=== PATIENT | male | born 1975 | race Two or more races ===

== ENCOUNTER 2017-08-02 05:54 | Inpatient (IN) | payer OTHER ==
[~2017-08-02] VITALS: Ht 165.1 cm; Wt 72.1 kg
[2017-08-02] VITALS (12 sets, daily range): BP systolic 109–136; BP diastolic 67–98
[~2017-08-02 05:54] MED LIST: IBUPROFEN600 MG ORAL
[2017-08-02] MEDS ORDERED: Vancomycin 1gm inj IVPB ONE (06:53)
[2017-08-02] MEDS ORDERED: Thrombin 5000 units TOPIC ONE (06:53)
[2017-08-02] MEDS ORDERED: Lidocaine 1% Plain 30 ml INJ ONE ×2 (06:54→07:01)
[2017-08-02] MEDS ORDERED: Bacitracin 50000 Units Vial ONE (06:54)
[2017-08-02] MEDS ORDERED: ceFAZolin sod 2 GM in D5W 110 ML IVPB SCH (07:00)
[2017-08-02] MEDS ORDERED: fentaNYL 100 mcg/2 mL IV ONE (07:01)
[2017-08-02] MEDS ORDERED: Midazolam 2mg/2ml Inj ONE (07:02)
[2017-08-02] MEDS ORDERED: Propofol 1,000mg/ 100ml btl IV ONE (07:30)
[2017-08-02] MEDS ORDERED: Sterile Water Irrig 1000ml IRRIG ONE (07:30)
[2017-08-02] MEDS ORDERED: LR 1000ml ONE (07:30)
[2017-08-02] MEDS ORDERED: Sodium Chloride 10ml vial INJ ONE ×3 (07:30→08:58)
[2017-08-02] MEDS ORDERED: Neostigmine 1mg/ml 10ml Inj ONE (07:30)
[2017-08-02] MEDS ORDERED: Zemuron 50mg/5ml Inj IV ONE (07:30)
[2017-08-02] MEDS ORDERED: NS Irrig 1000ml ONE (07:30)
[2017-08-02] MEDS ORDERED: Succinylcholine 20mg/ml 10ml vial ONE (07:30)
--- NOTE | 2017-08-02 07:40 | Pre-Procedure Note/Attestation ---
Pre-Procedure Note/Attestation Complete Prior to Procedure Planned Procedure: not applicable Procedure Narrative: Anterior Cervical Discectomy and Fusion of C7-T1 Indications for Procedure Pre-Operative Diagnosis: C7T1 herniation Attestation I attest that I discussed the nature of the procedure; its benefits; risks and complications; and alternatives (and the risks and benefits of such alternatives ), prior to the procedure, with the patient (or the patient's legal agricultural sales representative). I attest that, if there was a reasonable possibility of needing a blood transfusion, the patient (or the patient's legal agricultural sales representative) was given the [facility] standardized written summary, pursuant to the [place] Blood Safety Act ([place] Health and Safety Code # 1645, as amended). I attest that I re-evaluated the patient just prior to the surgery and that there has been no change in the patient's H&P, except as documented below: Miki Zamorano MD August 02, 2017 07:40
[2017-08-02] MEDS ORDERED: Clindamycin 600mg 50 ML IV ONE (07:42)
[2017-08-02] MEDS ORDERED: Naloxone 0.4mg/ml Inj IVP PRN (07:45)
[2017-08-02] MEDS ORDERED: Morphine Sulfate 4mg/ml Inj SUBQ PRN ×2 (07:45)
[2017-08-02] MEDS ORDERED: Milk of Magnesia 30ml Ud ORAL PRN (07:45)
[2017-08-02] MEDS ORDERED: HYDROcodone/Acetamin 7.5/325 tab ORAL PRN ×2 (07:45)
[2017-08-02] MEDS ORDERED: Norco 5mg/325mg tab ORAL PRN (07:45)
[2017-08-02] MEDS ORDERED: Chloraseptic Spray 20mL Bottle ORAL PRN (07:45)
[2017-08-02] MEDS ORDERED: Metoclopramide 10mg/2ml Inj IVP PRN (07:45)
--- NOTE | 2017-08-02 07:46 | Brief Operative Note ---
Immediate Post Operative Note Operative Note Chief Complaint: neck pain and radiculopathy Pre-op Diagnosis: C7T1 herniation Procedure: Anterior Cervical Discectomy and Fusion of C7-T1 Post-op Diagnosis: same as pre-op Findings: consistent w/pre-op dx studies Surgeon: Jaun Self Pay Collector: Nicole Anesthesiologist: POORNIMA Anesthesia: general Specimen: none Complications: none Condition: stable Fluids: IVF Estimated Blood Loss: minimal Drains: none Implant(s) used?: Yes - Cervical Peek interlock 6, osteocell Miki Zamorano MD August 02, 2017 07:46
[2017-08-02] MEDS ORDERED: Morphine Sulfate 10mg/ml Inj ONE (08:23)
[2017-08-02] MEDS ORDERED: Glycopyrrolate 0.2mg/ml 1ml Vial ONE (08:41)
[2017-08-02] MEDS ORDERED: Ketorolac 30mg Inj ONE (08:41)
[2017-08-02] MEDS ORDERED: Phenylephrine 10mg/ml Vial ONE (08:58)
[2017-08-02] MEDS ORDERED: LR 1000ml 1,000 ML IVLG SCH (08:59)
--- NOTE | 2017-08-02 08:59 | Anethesia Preoperative Eval ---
Anesthesia Pre-op PMH/ROS General Date of Evaluation: August 02, 2017 Time of Evaluation: 07:12 Anesthesiologist: Shanelle ASA Score: ASA 2 Mallampati Score Class I : Soft palate, uvula, fauces, pillars visible Class II: Soft palate, uvula, fauces visible Class III: Soft palate, base of uvula visible Class IV: Only hard plate visible Mallampati Classification: Class II Surgeon: Jaun Diagnosis: Cervical radiculopathy Surgical Procedure: ACDF C7-T1 Anesthesia History: none Family History: no anesthesia problems Allergies: Coded Allergies: No Known Allergies (Unverified , 07/31/17) Medications: see eMAR Past Medical History Cardiovascular: Denies: HTN, CAD, CO, valve dz, arrhythmia, other Pulmonary: Denies: asthma, COPD, MARIA TERES[place], other Gastrointestinal/Genitourinary: Reports: GERD - mild; Denies: CRI, ESRD, other Neurologic/Psychiatric: Reports: other - chronic pain; Denies: dementia, CVA, depression/anxiety, TIA Endocrine: Denies: DM, hypothyroidism, steroids, other HEENT: Denies: cataract (L), cataract (R), glaucoma, [place] (L), [place] (R), other Hematology/Immune: Denies: anemia, DVT, bleeding disorder, other Musculoskeletal/Integumentary: Denies: OA, RA, DJD, DDD, edema, other PMH Narrative: as above PSxH Narrative: none Anesthesia Pre-op Phys. Exam Physician Exam Last Vital Signs Date Time Temp Pulse Resp B/P (MAP) Pulse Ox O2 Delivery O2 Flow Rate FiO2 08/02/17 06:57 98.4 72 20 128/84 98 Room Air 98.4 Constitutional: NAD Neurologic: CN 2-12 intact Cardiovascular: RRR, no M/R/G Respiratory: CTA Gastrointestinal: S/NT/ND Airway Exam Mallampati Score: Class II MO: full Neck: stiff ROM: limited Teeth: intact Dentures: no upper, no lower Anesthesia Pre-op A/P Labs see chart Studies Pre-op Studies: EKG - NSR Risk Assessment & Plan Assessment: ASA 2 Plan: GA with ETT, neuromonitoring Status Change Before Surgery: No Pre-Antibiotics Drug: Ancef 2gr. Clindamycin 600mg Given Within 1 Hr of Incision: Yes Time Given: 08:20 Ricky Timmons MD August 02, 2017 08:59
[2017-08-02] MEDS ORDERED: DiphenhydrAMINE 50mg/ml Inj IVP PRN (09:00)
[2017-08-02] MEDS ORDERED: Midazolam 2mg/2ml Inj IVP PRN (09:00)
[2017-08-02] MEDS ORDERED: Ketorolac 30mg Inj IV PRN (09:00)
[2017-08-02] MEDS ORDERED: fentaNYL 100 mcg/2 mL IV PRN (09:00)
[2017-08-02] MEDS: Docusate 100mg cap ORAL SCH ×2 (09:00→17:57)
[2017-08-02] MEDS ORDERED: Meperidine 50mg/ml Inj(FOR RIGORS ONLY) IV PRN (09:00)
--- NOTE | 2017-08-02 10:22 | Immediate Post-Op Evaluation ---
Immediate Post-Op Evalulation Immediate Post-Op Evalulation Procedure: ACDF C7-T1 Date of Evaluation: August 02, 2017 Time of Evaluation: 10:20 IV Fluids: 1200 Blood Products: none Estimated Blood Loss: <50 Urinary Output: 100 Blood Pressure Systolic: 117 Blood Pressure Diastolic: 69 Pulse Rate: 86 Respiratory Rate: 22 O2 Sat by Pulse Oximetry: 99 Temperature (Fahrenheit): 97.8 Pain Score (1-10): 2 Nausea: No Vomiting: No Complications none Patient Status: reacts, patent, extubated, none Hydration Status: adequate Ricky Timmons MD August 02, 2017 10:22
--- NOTE | 2017-08-02 11:46 | Diagnostic Imaging Report ---
Indication: Pain, intraoperative imaging, right upper extremity greater than left upper extremity pain Technique: Digital intraoperative images Comparison: none Findings: Images demonstrate placement of anterior fusion hardware at C7-T1 Impression: Intraoperative imaging, as described
[2017-08-02] MEDS ORDERED: NS w/KCl 20mEq 1,000 ML IV SCH (12:30)
[2017-08-02] MEDS: Dexamethasone 4mg/ml vial IVP SCH ×2 (12:35→17:57)
[2017-08-02] MEDS ORDERED: NORCO 10-325 T1 EACH ORAL (15:15)
[2017-08-02] MEDS ORDERED: SOMA350 MG PO (15:16)
[2017-08-02] MEDS ORDERED: ceFAZolin sod 1 GM in D5W 55 ML IV SCH (16:00)
--- NOTE | 2017-08-02 21:00 | Operative Note - Dictated ---
DATE OF OPERATION: 08/02/2017 SURGEON: Miki Zamorano M.D., orthopedic spine surgeon. POPULATION GENETICIST: Alonso Rivera M.D. PREOPERATIVE DIAGNOSES: 1. Intractable neck pain. 2. Radiculopathy. 3. Herniation, C7-T1. 4. Neural foraminal stenosis, C7-T1. 5. Stenosis. POSTOPERATIVE DIAGNOSES: 1. Intractable neck pain. 2. Radiculopathy. 3. Herniation, C7-T1. 4. Neural foraminal stenosis, C7-T1. 5. Stenosis. PROCEDURE PERFORMED: 1. Anterior cervical discectomy and fusion of C7-T1 using NuVasive Interlock Cage, size , a total of three 14-mm screws, with the insertion of 1 mL of allograft Osteocel bone. 2. Use of intraoperative microscope. 3. Motor-evoked potential monitoring. 4. Somatosensory-evoked potential monitoring. 5. Supervision and interpretation of fluoroscopy. COMPLICATIONS: None. ANESTHESIA: General. ESTIMATED BLOOD LOSS: Less than 100 mL. INDICATIONS FOR SURGERY: This patient is a 41-year-old male who has history of intractable neck pain, radiculopathy, herniation at C7-T1, neural foraminal stenosis at C7-T1, and stenosis. We tried a course of conservative management, but despite this course, there was still a significant component of persistent, recalcitrant neck pain and arm pain. The MRI demonstrated significant neural foraminal compromise secondary to disc herniations at C7-T1. We had a long discussion with Cholo regarding the risks and benefits of surgery. Our discussion included but was not limited to nonoperative management, chiropractic management, another epidural steroid injection as well as definitive management in the form of surgery. We recommended an anterior cervical discectomy and fusion of C7-T1 as final definitive management. We reviewed the risks and benefits of surgery with the patient. Our discussion included a comprehensive review of the clinical issues and the nature of the clinical decision. We reviewed the alternatives, including doing nothing. The patient elected to proceed accordingly with anterior cervical discectomy and fusion of C7-T1. We had a long discussion regarding the risks, alternatives, and benefits of surgery. Our description of the risks included a discussion in person as well as a signed consent which detailed all pertinent risks from the procedure itself. Briefly, our discussion included but was not limited to infection, bleeding, pseudarthrosis, spinal cord injury, neurovascular injury, dural tear, CSF leak, neuropathy, paralysis, permanent weakness/drop foot/drop arm, paresthesias, blindness, palsy, and weakness. The patient understood there may be a need for a revision surgery or additional procedures. Approach-related complications including dysphonia, dysphagia, blindness, permanent vocal cord and neural injury, hematoma, swallowing and breathing difficulty. Medical complications were reviewed including liver, kidney, shock, cardiopulmonary failure, anesthesia complications including , swelling, damage to the musculature, larynx/voice injury or loss, esophagus/throat, trachea, blood vessels and muscles/muscular sprain and lungs/pneumothorax during this surgical procedure; injury to deeper structures may be temporary or permanent. After this review of risks, the patient understood these and elected to proceed. A written and verbal consent was given. We discussed the pros and cons of all the alternatives. We discussed the uncertainties associated with the decision. Afterwards I assessed the patient's understanding and explored their preferences. All questions were answered and no guarantees were given. Medical clearance was obtained prior to surgery. INTRAOPERATIVE FINDINGS: A broad-based disc herniation which was found posterior to a tear/rent in the posterior longitudinal ligament causing a considerable amount of neural foraminal stenosis with significant encroachment on the neural foramina and spinal cord. DESCRIPTION OF PROCEDURE: Under the benefit of general endotracheal anesthesia and with the assistance of the entire operative team, the patient was moved from the rcold brook onto the operative table in the supine position. The head was secured and carefully positioned appropriately. Bilateral arms were secured with GelPads and foam and all bony prominences were padded. For the bilateral lower extremities, SCD and JOSE JUAN hose were placed for DVT prophylaxis. A surgical timeout was called which corroborated our planned procedure of anterior cervical discectomy and fusion of C7-T1. Preoperative antibiotics were administered within 30 minutes of the incision for antibiotic prophylaxis. Using lateral fluoroscopic radiography, the operative levels were delineated. Next the wound was prepped and draped with chlorhexidine and sterile drapes. An incision was based on lateral fluoroscopy and we centered our incision at the C7-T1 interspace and next using a standard Elliott-Nance anterior-based approach, the incision was taken down through the skin and subcutaneous tissues until the vertebral bodies and their corresponding disc spaces were visualized. A needle was placed into the interspace to confirm placement of the operative interspace and we performed the remainder of procedure under microscopic visualization. Next, using bipolar and Bovie cautery to ensure meticulous hemostasis, the longus colli was mobilized bilaterally and retractors were placed deep to the longus colli bilaterally to address retraction. Next we turned our attention to the radical anterior discectomy. This was initially performed at C7-T1 first by using a #15 blade scalpel followed by narrow pituitaries and a Micro-sect 5-B curette was used to denude the endplate of all cartilaginous tissue. Next using a [employer] AM8 drill bit, the partial vertebrectomy was performed in a zjsx-nu-nece and [id number] fashion, and ultimately the posterior uncinate joints bilaterally and posterior osteophytic lips and margins causing central and lateral impingement were carefully denuded until visualization of the posterior longitudinal ligament was possible. An endplate preparation was performed in the exact same fashion using an intervertebral vending machine technician, sequential distraction was obtained throughout the disc space. We saw a tear/rent in the PLL and this was carefully mobilized and dissected using a Micro-sect 1-B curette until we visualized a broad-based disc herniation with compression of the spinal cord as well as neural foramina which was right more than left sided. This neural foraminal compression was carefully resected using a Kerrison-1 and Kerrison-2 rongeurs until complete decompression of the spinal cord was visualized and complete decompression of the neural foramina and nerve root therein as well as the axilla and lateral margin of the nerve root was visualized and subsequently completely decompressed. The family was notified at one hour intervals throughout the procedure to provide for consistent updates. We next turned our attention towards trialing our implant within the disc space. We initially tried size 5 and afterwards size 6 trial from the [employer] system at this level, which appeared to be appropriate under AP and lateral fluoroscopy as well as in terms of its height, depth, width, and lack of toggle. The PEEK (polyetheretherketone) interbody cages were then both packed with 1 mL of allograft bone from Osteocel and local autograft bone matrix. Next these were then carefully advanced and secured into their intervertebral spaces under direct visualization and with supervision of AP and lateral fluoroscopic views. We next turned our attention towards plating. Plating was performed with [employer] Interlock-C plating system. A total of three screws, size 14 mm in length were inserted and confirmed under AP and lateral fluoroscopy and confirmed to be in excellent position. After a finger sweep, we confirmed removal of all sponges. The retractor was removed and we next turned our attention to meticulous hemostasis with FloSeal and bipolar cautery. After the sponge and needle count was again found to be correct with our second count, we next turned our attention to closure. The wound was again copiously irrigated with antibiotic-impregnated saline. Closure consisted of 4-0 clear nylon for the platysma, and 6-0 clear nylon for the superficial skin. Final skin closure and dressings consisted of Dermabond. Prior to final closure, a final radiograph was obtained which demonstrated the hardware was intact with excellent position throughout. The patient tolerated the procedure well. The patient was carefully extubated after the conclusion of surgery. We discussed the findings of the surgery with the family upon completion of the case. At this point, the patient was transferred to the spine floor for further observation. Miki Zamorano M.D. DR: Serge JOB#: [id number] CC:
--- NOTE | 2017-08-02 21:15 | Discharge Summary ---
DATE OF ADMISSION: 08/01/2017 DATE OF DISCHARGE: 08/02/2017 PROCEDURE PERFORMED DURING ADMISSION: ACDF of C7-T1. REASON FOR ADMISSION: C7-T1 herniation, neck pain, and radiculopathy. HOSPITAL COURSE/TREATMENT RENDERED: DISCHARGE PHYSICAL EXAMINATION: 1. The patient was ambulating with and without the assistance of physical therapy. 2. Prior to discharge home, incision was clean and dry with minimal swelling. 3. Follows commands. 4. Alert and oriented. 5. Singh discontinued, voiding. 6. Incentive spirometer at bedside. 7. IVF hep-locked. MOTOR: Demonstrates expected postoperative bulk and tone. Moves biceps, triceps, and deltoid musculature on command. Moves hip flexors, quadriceps, tibialis anterior, EHL, gastrocsoleus musculature on command as well. TREATMENT RENDERED: 1. Daily nursing care. 2. Physical therapy. 3. Occupational therapy. 4. Intravenous medications. 5. Oral medications. 6. Daily postoperative examinations by Spine Surgery team. CONDITION OF PATIENT ON DISCHARGE: The condition on discharge is stable for discharge to home. DISCHARGE INSTRUCTIONS: Our specific instructions relating to physical activity, medications, diet, and follow-up care are detailed in our standard operative folder and were given to this patient prior to surgery. We will however summarize these briefly as stated below. Regarding physical activity, we would like the patient to limit their flexion, extension, and rotation. We also require a limitation on their bending, lifting, and twisting. All medication has been called in prior to surgery to their pharmacy of choice. They can resume their regular diet once tolerated. We would like them to shower and limit soaking the wound in a tub/Jacuzzi/the ocean for a period of one month or until the incision is completely healed. We will have them follow up in our office in three weeks' time for their regularly scheduled appointment. They understand to call our office tomorrow to schedule the time for their three-week followup appointment. The patient will notify us should they experience any increase in the severity of pain, redness, swelling, or drainage from their incision. Miki Zamorano M.D. DR: Serge JOB#: [id number] CC:
[2017-08-03 08:16] VITALS: BP 108/72
--- NOTE | 2017-08-03 08:16 | 48 Hour Post Anesthesia Eval ---
Post Anesthesia Evaluation Procedure: ACDF C7-T1 Date of Evaluation: August 02, 2017 Time of Evaluation: 16:15 Blood Pressure Systolic: 108 0: 72 Pulse Rate: 64 Respiratory Rate: 20 Temperature (Fahrenheit): 97.6 O2 Sat by Pulse Oximetry: 98 Airway: patent Nausea: No Vomiting: No Pain Intensity: 2 Hydration Status: adequate Cardiopulmonary Status: stable Mental Status/LOC: patient returned to baseline Follow-up Care/Observations: n/a Post-Anesthesia Complications: none Follow-up care needed: ready to discharge Ricky Timmons MD August 03, 2017 08:16
== END 2017-08-02 18:54 | disposition home or self-care (01) | DRG 473 ==
LOC: SDSOVERFLO 05:54 → 3E 11:09
PROC: 0RB50ZZ Excision of Cervicothoracic Vertebral Disc, Open Approach (ICD-10-PCS; principal; 2017-08-02 07:30)
PROC: 0RG40A0 Fusion of Cervicothoracic Vertebral Joint with Interbody Fusion Device, Anterior Approach, Anterior Column, Open Approach (ICD-10-PCS; principal; 2017-08-02 07:30)
DX: M50.23 Other cervical disc displacement, cervicothoracic region (principal); M48.03 Spinal stenosis, cervicothoracic region; K21.9 Gastro-esophageal reflux disease without esophagitis
CPT/HCPCS: 36415; 72040; 76001; 86850; 86900; 86901; 87081; J2250; J2370; J2405; J2710; S0077